=== PATIENT | male | born 1965 | race Caucasian/White ===

== ENCOUNTER 2022-11-21 08:59 | Outpatient (OUT) | payer OTHER, SELFPAY ==
--- NOTE | 2022-11-21 09:38 | PM.CN ---
Consult Note: HPI Data of Consult Patient: known to practice within the last 3 years Consult date: 11/21/22 Requesting Physician: MUSA HURTADO NP Primary Care Provider: Non-Staff Physician, Family Provider: [place] Consult Narrative Narrative: Patient is here for f/u of chronic low back pain . [facility] RFA was denied by insurance d/t not completing PT. He states PT makes things worse for him. We discussed attending nonaggressive PT to assist with better pain relief and fx and he is in agreement. After PT finished, can resubmit for [facility] RFA if still prudent. Pain today is bilat lumbar area and SI area . No radiculopathy. Denies new sensorimotor or bowel or bladder issues. Denies medication adverse SE. Pain medication regimen assists patient in better ability to complete ADLs. He did request stronger pain meds. UDS 07/04 was ok. Can try tramadol BID. He also had lumbar RFA 09/02 at another pain center. He states he received significant relief from this, but it is wearing off. Can get records from other facility to better determine if able to repeat this RFA lumbar area. cc:: CC: MUSA HURTADO NP Review of Systems ROS Status of ROS 10 or more systems reviewed and unremarkable except as noted in history and below Musculoskeletal Reports: back pain Exam Constitutional Documenting provider has reviewed patient's vital signs: yes Common normals: oriented x3, healthy appearing, alert and well nourished General appearance: cooperative, comfortable and well developed Nutritional appearance: obese Orientation/consciousness: Yes awake, Yes oriented to person, Yes oriented to place and Yes oriented to time HENMO Common normals: normocephalic and moist oral mucous membranes Respiratory Common normals: normal respiratory effort, no retractions and no use of accessory muscles Effort & inspection: able to speak in complete sentences and symmetric chest movement Back & Pelvis Lumbar spine/lower back: normal to inspection, ROM limited, pain with ROM, paraspinal muscle tenderness and paraspinal muscle spasm Other: positive facet loading bilat lumbar area positive leonarda bilat muscle strength 3/5 bilat LE Extremity Other: apparent venous stasis ulcers to bilat LE without signs of infection. Assessment and Plan Assessment and Plan (1) Lumbar spondylosis: (2) Muscle spasm: (3) Sacroiliac joint pain: Plan refill baclofen PT order for nonaggressive therapy start tramadol narcan rx get records from previous pain center regarding lumbar RFA to see if can be repeated may try to get [facility] RFA after PT
== END 2022-11-21 09:00 | disposition home or self-care (01) ==
LOC: PM 09:00
PROVIDERS: Visit Provider Nurse Practitioner
DX: M47.816 Spondylosis without myelopathy or radiculopathy, lumbar region (principal); M62.838 Other muscle spasm; M53.3 Sacrococcygeal disorders, not elsewhere classified
CPT/HCPCS: G0463